=== PATIENT | female | born 1990 | race Caucasian/White ===

== ENCOUNTER 2022-06-12 09:46 | Outpatient (CLI) | payer BC ==
[2022-06-12] MEDS ORDERED: Iopamidol 300 61% 100 ML VIAL FS ONE (12:46)
== END 2022-06-12 09:47 | disposition home or self-care (01) ==
LOC: CSHCT 09:46
PROVIDERS: ATTEND Internal Medicine Gastroenterology
DX: N82.3 Fistula of vagina to large intestine (principal); N83.201 Unspecified ovarian cyst, right side; Z97.5 Presence of (intrauterine) contraceptive device
CPT/HCPCS: 74177; Q9967